=== PATIENT | female | born 1980 | race Caucasian/White ===

== ENCOUNTER 2021-12-08 10:26 | Outpatient (CLI) | payer OTHER, SELFPAY ==
--- NOTE | 2021-12-08 10:00 | DI.RAD_ITS ---
Exam(s) XR FOOT RT COMPLETE EXAM: XR FOOT RT COMPLETE CLINICAL HISTORY: follow up. TECHNIQUE: 2D digital imaging was performed of the right foot. Three images were obtained. AP, obl ique and lateral views were obtained. COMPARISON: CR XR FOOT RIGHT 3 OR MORE VIEWS from 10/25/2021 FINDINGS: BONES: There is a nondisplaced fracture of the terminal tuft of the great toe. There is also a mildl y displaced fracture of the terminal tuft of the 2nd toe. On the oblique view, there is a question o f a fracture through the lateral aspect of the base of the distal phalanx of the great toe. No bony destructive lesion is seen. There is a plantar calcaneal spur. There is a small enthesophyte at the Achilles insertion site at the posterior calcaneus. JOINTS: No dislocation present. SOFT TISSUE: Normal. IMPRESSION: 1. Fractures involving the terminal janak of the great toe and 2nd toe. 2. Question of a nondisplaced fracture involving the lateral aspect of the base of the distal phalanx of the great toe. DATA REPOSITORY: RADIATION DOSE DELIVERED:
== END 2021-12-08 10:27 | disposition home or self-care (01) ==
LOC: DIORS 10:27
PROVIDERS: Visit Provider Physician Assistant Surgical
DX: S92.532A Displaced fracture of distal phalanx of left lesser toe(s), initial encounter for closed fracture; S92.425A Nondisplaced fracture of distal phalanx of left great toe, initial encounter for closed fracture; M77.32 Calcaneal spur, left foot
CPT/HCPCS: 73630

== ENCOUNTER 2022-01-19 10:13 | Outpatient (CLI) | payer OTHER, SELFPAY ==
--- NOTE | 2022-01-19 10:00 | DI.RAD_ITS ---
Exam(s) XR TOE RT GREAT EXAM: XR TOE RT GREAT CLINICAL HISTORY: follow up. TECHNIQUE: 2D digital imaging was performed. Three images were obtained. COMPARISON: CR XR FOOT RT COMPLETE from 12/08/2021 FINDINGS: BONES: There has been no change in alignment of the fractures involving the terminal janak of the 1s t and 2nd toes and the fracture of the lateral aspect of the base of the distal phalanx of the great toe. No bony destructive lesion is seen. JOINTS: No dislocation present. SOFT TISSUE: Normal. IMPRESSION: Stable fractures. DATA REPOSITORY: RADIATION DOSE DELIVERED:
== END 2022-01-19 10:14 | disposition home or self-care (01) ==
LOC: DIORS 10:15
PROVIDERS: Visit Provider Physician Assistant Surgical
DX: S92.425D Nondisplaced fracture of distal phalanx of left great toe, subsequent encounter for fracture with routine healing (principal); S92.532D Displaced fracture of distal phalanx of left lesser toe(s), subsequent encounter for fracture with routine healing; X58.XXXD Exposure to other specified factors, subsequent encounter
CPT/HCPCS: 73660

== ENCOUNTER 2022-05-16 09:33 | Emergency (ER) | payer MEDICAID, SELFPAY ==
[2022-05-16 09:36] VITALS: BP 128/60; PULSE 83; RESP 14; TEMP 36.5; O2SAT 99
--- NOTE | 2022-05-16 10:01 | ED.GENADUL_ITS ---
Discharge Plan Disposition Patient Disposition: HOME Condition: Stable Discharge Details Clinical Impression: Abscess of axilla, left Primary Care Provider: None,None ED Provider: Aneta Mello Home Meds and New Rx's Prescriptions: No Action No Known Home Meds Discharge Instructions Instructions: Abscess (ED), Abscess Incision and Drainage (DC) Additional Instructions: Small amount of packing was placed to keep the incision open. It may continue to drain if this is okay. Please have packing removed after 3 days if it falls out before then that is okay. No soaking. Return if any worsening redness, worsening swelling or red streaks, fever or chills. Please take Tylenol or Ibuprofen with food every 4-6 hours as needed for pain and swelling. Follow up with primary care provider in 3-5 days. Return to ED sooner if any worsening or concerns. Increase oral fluids. Stand Alone Forms: Work Release Medical Decision Making 42-year-old female presents to the ER with a chief complaint of left axilla ab scess. Patient does have a history of probable hydradenitis suppurativa and has had recurrent cysts she reports that normally she is able to get them to open on her own however is this when she cannot. She noticed this in the last 24 to 48 hours. Will apply LET and plan for I&D. Area was infiltrated with 1% lidocaine with epinephrine which patient tolerated with difficulty. 1119: Abscess I&D with moderate amount of purulent drainage expressed. Patient tolerated with some difficulty please see procedure note. Approximately 2 and half inches of iodoform packing placed. Instructed on home care and have packing removed in 3 days. We will give patient Percocet here in the department. This text was generated using [employer] system, please disregard any oddities of phrase or misspellings. Medical Records Medical records reviewed: Yes I reviewed the patient's medical records. HPI General Mode of arrival: ambulatory . Date/Time Provider Initiated Documentation: 05/16/22 09:34 . Limitations to Documentation: no limitations . Information obtained by: patient, RN notes reviewed and old records reviewed . HPI Narrative: 42-year-old female presents to the ER with a chief complaint of left axilla abscess. Patient does have a history of probable hydradenitis suppurativa and has had recurrent cysts she reports that normally she is able to get them to open on her own however is this when she cannot. She noticed this in the last 24 to 48 hours. She denies any fever chills or systemic symptoms. She does have an area of fluctuance noted in surrounding scar tissue to her left axilla. No significant surrounding erythema. Related Data Home Medications Medication Instructions Recorded Confirmed Unknown [No Known Home Meds] 11/02/21 05/16/22 Allergies Allergy/AdvReac Type Severity Reaction Status Date / Time Penicillins Allergy Verified 01/19/22 09:48 General Stated Complaint: Cellulitis JACKIE: 3 Review of Systems All systems reviewed & are unremarkable except as noted in HPI and below Integumentary/Breasts Skin/Breast: Reports as per HPI, Reports lesions, Reports skin pain and Reports skin swelling PFS All Active Problems (Updated 05/16/22 @ 11:22 by Aneta Mello NP) Abscess of axilla, left (Acute) Fracture of toe of right foot (Acute 10/25/21) Great toe distal phalanx and second toe distal phalanx. Social History Smoking/Tobacco Use Status: Current every day Tobacco Type: cigarettes Tobacco: How many years used: 28 Smoking risk assessment performed?: Yes Alcohol Intake: current Alcohol Intake frequency: holidays/special occasions only Drug use: Rarely Substance use type: marijuana Current gender identity: female Do you feel safe at home: Yes Do you feel safe in your relationship?: Yes Exam Chest Chest/axillae images: 1. Approximately 2 cm x 2 cm area of fluctuance. Surrounded by significant scar tissue from previous abscesses. I do suspect patient has hidradenitis suppurativa as she has gotten recurrent lesions to her groin and other axilla Course Vital Signs Vital signs: Vital Signs Temperature 36.5 C 05/16/22 09:36 Pulse 83 05/16/22 09:36 Respiratory Rate 14 05/16/22 09:36 Blood Pressure 128/60 05/16/22 09:36 Pulse Oximetry 99 05/16/22 09:36 Temperature 36.5 C 05/16/22 09:36 Temperature Source Temporal Artery Scan 05/16/22 09:36 Pulse 83 05/16/22 09:36 Respiratory Rate 14 05/16/22 09:36 Blood Pressure 128/60 05/16/22 09:36 Blood Pressure Position Sitting 05/16/22 09:36 Pulse Oximetry 99 05/16/22 09:36 Oxygen Delivery Method Room Air 05/16/22 09:36 Oxygen Flow Rate 0 05/16/22 09:36 Procedures Abscess I/D Site: Upper Extremity (Axilla) Side (if applicable): Left Sedation/analgesia: None Local Anesthetic: With Epi and Other Anesthetic Amount of anesthesia used (mL): 3 Technique: Incised with #11 Blade Amount of fluid expressed (mL): 10 Irrigation: No Packing used?: Iodoform Complications: Pain
[2022-05-16] MEDS: Lidocaine/Epinephri/Tetracaine Topical Gel 3 ML TP (10:14)
[2022-05-16] MEDS: oxyCODONE 5 mg/Acetaminophen 325 mg TAB 1 TAB PO (11:28)
== END 2022-05-16 11:37 | disposition home or self-care (01) ==
PROVIDERS: Emergency Provider Registered Nurse Emergency
DX: L02.412 Cutaneous abscess of left axilla (principal); F17.210 Nicotine dependence, cigarettes, uncomplicated
CPT/HCPCS: 10060; 99283